=== PATIENT | female | born 1945 | race Caucasian/White ===

== ENCOUNTER 2022-10-23 10:29 | Outpatient (CLI) | payer MEDICARE, BC | END 2022-10-23 10:30 | disposition home or self-care (01) | LOC: CSHWCC 10:29 | PROVIDERS: ATTEND Nurse Practitioner Family | DX: S91.102D Unspecified open wound of left great toe without damage to nail, subsequent encounter (principal) | CPT/HCPCS: 97139; G0463; 99212 ==